=== PATIENT | female | born 1960 | race Caucasian/White ===

== ENCOUNTER 2019-07-03 08:50 | Day surgery (SDC) | payer BC ==
[2019-07-03] MEDS ORDERED: PROPOFOL 10 MG/ML VIAL IV ONE (08:51)
[2019-07-03] MEDS ORDERED: LIDOCAINE 2% MDV (20MG/ML) 20ML VIAL IV ONE (08:51)
--- NOTE | 2019-07-11 15:11 | Operative Note ---
OPERATION: COLONOSCOPY with cold forceps and cold snare polypectomies. PREOPERATIVE DIAGNOSIS: Personal history of colon polyps. POSTOPERATIVE DIAGNOSIS: Colon polyps. ESTIMATED BLOOD LOSS: Minimum. SPECIMENS: Transverse, descending, and sigmoid polyps. COMPLICATIONS: None apparent. PREPARATION QUALITY: Good to excellent. PROCEDURE: After informed consent was obtained from the patient, she was placed in the left lateral decubitus position in the endoscopy suite, sedated and monitored by the department of anesthesia. Digital rectal exam was unremarkable. A well-lubricated [id number] colonoscope was inserted into the rectum and advanced to the cecum. The cecum, cecal bulb, ileocecal valve, and ascending colon were unremarkable. There were 2 transverse colon polyps; one 4 mm in diameter removed with a cold forceps and the other approximately 1.0 cm removed in piecemeal fashion with a cold snare and retrieved. There was a 5 mm descending colon polyp removed with a cold snare and retrieved. There was a 3-4 mm sigmoid colon polyp removed with a cold forceps. The remainder of the transverse, descending colon, sigmoid colon, and rectum were otherwise unremarkable. Forward and J-turn views of the rectum and anorectum were unrevealing. The endoscope was straightened, the rectal ampulla deflated, and the endoscope was removed. RECOMMENDATIONS: The patient should resume her medications and diet. She will require repeat exam in 3-5 years pending tissue histology. As always, thank you for allowing me to participate in the healthcare of your patients. AVIVA
== END 2019-07-03 11:00 | disposition home or self-care (01) ==
LOC: HOP 08:50
PROVIDERS: ATTEND Internal Medicine Gastroenterology
DX: Z86.010 Personal history of colon polyps (principal); D12.4 Benign neoplasm of descending colon; D12.3 Benign neoplasm of transverse colon; D37.4 Neoplasm of uncertain behavior of colon; E78.00 Pure hypercholesterolemia, unspecified; I10 Essential (primary) hypertension; E03.9 Hypothyroidism, unspecified